=== PATIENT | female | born 1995 | race American Indian/Alaskan Native ===

== ENCOUNTER 2016-08-22 16:39 | Outpatient (CLI) | payer MEDICAID ==
[2016-08-22] MEDS ORDERED: LACTATED RINGERS 500 ML IV ONE (17:58)
[2016-08-22] MEDS ORDERED: LACTATED RINGERS 1,000 ML IV SCH (18:00)
[2016-08-22 18:07] VITALS: BP 132/76
[2016-08-22] MEDS ORDERED: ZOFRAN IM ONE (18:14)
[2016-08-22 20:14] LABS: Bacteria,Urine 1+ /HPF (Negative); Bilirubin,Urine NEG (Negative); Blood,Urine NEG (Negative); Ketones,Urine 80 mg/dL (Negative); Leukocyte Esterase,Urine SM (Negative); Mucus,Urine 2+ /HPF; Nitrite,Urine POS (Negative)
== END 2016-08-22 20:45 | disposition home or self-care (01) ==
LOC: TRG 16:39
PROVIDERS: ATTEND Obstetrics & Gynecology
DX: O47.03 False labor before 37 completed weeks of gestation, third trimester (principal); Z3A.31 31 weeks gestation of pregnancy
CPT/HCPCS: 81001; J2405; J7120; 59025; 96360; 96376

== ENCOUNTER 2017-08-01 12:29 | Outpatient (CLI) | payer OTHER, MEDICAID ==
[2017-08-01] MEDS ORDERED: LACTATED RINGERS 500 ML IV ONE (14:50)
[2017-08-01 14:57] VITALS: BP 109/57
[2017-08-01] MEDS ORDERED: ZOFRAN IV ONE (15:57)
[2017-08-01] MEDS ORDERED: TRANSDERM-SCOP TD ONE (15:58)
[2017-08-01] MEDS ORDERED: D5LR 1,000 ML IV SCH (16:00)
[2017-08-01] MEDS ORDERED: REGLAN IV ONE (16:00)
[2017-08-01 17:47] LABS: Bacteria,Urine 4+ /HPF (Negative); Bilirubin,Urine NEG (Negative); Blood,Urine SM (Negative); Color,Urine Amber (Yellow); Mucus,Urine FEW /HPF
[2017-08-01 17:50] LABS: WBC,Urine > 182.0 /HPF (0.0-6.0)
== END 2017-08-01 18:15 | disposition home or self-care (01) ==
LOC: TRG 12:29
PROVIDERS: ATTEND Obstetrics & Gynecology
DX: O47.02 False labor before 37 completed weeks of gestation, second trimester (principal); Z3A.25 25 weeks gestation of pregnancy
CPT/HCPCS: 59025; 81001; 96360; 96361; 96374; 96376; J2405; J2765; J7121

== ENCOUNTER 2017-09-08 15:33 | Outpatient (CLI) | payer OTHER, MEDICAID ==
[2017-09-08 16:34] LABS: Bacteria,Urine 1+ /HPF (Negative); Bilirubin,Urine NEG (Negative); Blood,Urine NEG (Negative); Color,Urine Yellow (Yellow); Mucus,Urine FEW /HPF; Urobilinogen,Urine < 2.0 mg/dL (<2.0)
[2017-09-08] MEDS ORDERED: LACTATED RINGERS 1,000 ML IV ONE (16:55)
[2017-09-08] MEDS ORDERED: ZOFRAN IV NR (17:46)
[2017-09-08 18:48] VITALS: BP 130/73
[2017-09-08] MEDS ORDERED: cefTRIAXone 1 GM in NACL 0.9% 20 ML IV SCH (20:30)
[2017-09-08] MEDS ORDERED: PHENERGAN PR PRN (21:18)
[2017-09-08] MEDS ORDERED: LACTATED RINGERS 1,000 ML IV SCH (22:00)
== END 2017-09-08 23:10 | disposition home or self-care (01) ==
LOC: TRG 15:33
PROVIDERS: ATTEND Obstetrics & Gynecology
DX: O47.03 False labor before 37 completed weeks of gestation, third trimester (principal); Z3A.33 33 weeks gestation of pregnancy
CPT/HCPCS: 59025; 81001; 96360; 96361; J0696; J2405; J7120